=== PATIENT | male | born 2000 | race Caucasian/White ===

== ENCOUNTER 2022-06-05 15:37 | Emergency (ER) | payer OTHER ==
[~2022-06-05] VITALS: Ht 167.6 cm; Wt 74.8 kg
[2022-06-05] MEDS ORDERED: CEFTRIAXONE 500 MG VIAL IM ONE (16:15)
[2022-06-05] MEDS ORDERED: DOXYCYCLINE HY100 MG PO (16:16)
[2022-06-05] MEDS ORDERED: NAPROSYN500 MG PO (16:20)
[2022-06-05] MEDS ORDERED: CEFTRIAXONE 500 MG VIAL ONE (16:31)
== END 2022-06-05 17:16 | disposition home or self-care (01) ==
LOC: FSED 15:44
DX: N50.812 Left testicular pain (principal); N45.1 Epididymitis; R50.9 Fever, unspecified; F17.210 Nicotine dependence, cigarettes, uncomplicated
CPT/HCPCS: 81003; 96372; 99282; J0696